=== PATIENT | male | born 1960 | race Caucasian/White ===

== ENCOUNTER → 2025-03-21 08:48 | Outpatient (REF) | payer BC, SELFPAY | LOC: HWRAD 08:48 | PROVIDERS: ATTENDING PHYSICIAN Nurse Practitioner Family; FAMILY PHYSICIAN Physician Assistant Medical | DX: R10.31 Right lower quadrant pain (principal) | CPT/HCPCS: 76705 ==

== ENCOUNTER → 2025-04-03 14:17 | Outpatient (REF) | payer BC, SELFPAY | LOC: RAD 14:17 | PROVIDERS: ATTENDING PHYSICIAN Nurse Practitioner Family; FAMILY PHYSICIAN Physician Assistant Medical | DX: R10.31 Right lower quadrant pain (principal) | CPT/HCPCS: 74177; Q9967 ==